=== PATIENT | female | born 1940 | race Caucasian/White ===

== ENCOUNTER → 2018-04-21 | Outpatient (CLI) | payer OTHER ==
[~2018-04-21] MED LIST: ALLERGY-TIME4 MG PO; AZOR; CALC.25 PO; CHLO4 PO; FEBU40TA PO; LEVSOD112 PO; LOSA25 PO; LOVA20 PO; OLME20 PO; OMEP20ER PO; ONDA8 PO; POTCHL10ER PO; PRED10 PO; PRED5 PO; PROB500 PO; PROM25 PO; Pepcid40 MG PO; Prednisone20 MG PO; RXHYDMOR2 PO; SPIR50 PO; TRAM50 PO; UBID100 PO; Vistaril50 MG PO
== END ==
LOC: LAB SHORT 14:16 → PLD 14:16
DX: D48.5 Neoplasm of uncertain behavior of skin (principal)
CPT/HCPCS: 88305; 88312

== ENCOUNTER → 2018-09-14 | Outpatient (CLI) | payer OTHER | LOC: PLD 11:24 → LAB SHORT 11:24 | DX: L57.0 Actinic keratosis (principal) | CPT/HCPCS: 88305 ==

== ENCOUNTER 2018-11-24 02:34 | Emergency (ER) | payer OTHER ==
[~2018-11-24] VITALS: Ht 157.5 cm; Wt 88.5 kg
[2018-11-24] MEDS ORDERED: LEVSOD25 (02:54)
[2018-11-24] MEDS ORDERED: OMEPRAZOLE MAGN20 MG (02:54)
[2018-11-24] MEDS ORDERED: MAGCHL64ER (02:54)
== END 2018-11-24 03:16 | disposition home or self-care (01) ==
LOC: ER 02:34
DX: S00.33XA Contusion of nose, initial encounter (principal); S00.11XA Contusion of right eyelid and periocular area, initial encounter; R04.0 Epistaxis; I10 Essential (primary) hypertension; M10.9 Gout, unspecified; Z79.899 Other long term (current) drug therapy; Z88.0 Allergy status to penicillin; X58.XXXA Exposure to other specified factors, initial encounter
CPT/HCPCS: 30901; 99283-25

== ENCOUNTER → 2021-07-01 | Outpatient (CLI) | payer OTHER ==
[~2021-07-01] MED LIST changes: +LEVSOD25; +MAGCHL64ER; +OMEPRAZOLE MAGN20 MG
== END ==
LOC: LAB SHORT 11:27
DX: D48.5 Neoplasm of uncertain behavior of skin (principal); L57.0 Actinic keratosis; Z88.1 Allergy status to other antibiotic agents; Z88.5 Allergy status to narcotic agent; Z88.8 Allergy status to other drugs, medicaments and biological substances; Z88.7 Allergy status to serum and vaccine
CPT/HCPCS: 88305

== ENCOUNTER → 2023-05-31 | Outpatient (CLI) | payer OTHER | END | disposition home or self-care (01) | LOC: LAB SHORT 12:08 → PLD 12:08 | DX: D18.01 Hemangioma of skin and subcutaneous tissue (principal) | CPT/HCPCS: 88305 ==